=== PATIENT | male | born 1985 | race Hispanic/Latino ===

== ENCOUNTER 2024-04-21 15:43 | Inpatient (IN) | payer OTHER ==
[~2024-04-21] VITALS: Ht 193 cm; Wt 149.3 kg
[2024-04-21] VITALS (9 sets, daily range): BP systolic 101–134; BP diastolic 51–108
[2024-04-21] MEDS ORDERED: ASPIRIN 81 LOW81 MG PO (15:59)
[2024-04-21] MEDS ORDERED: METOPROL TAR25 MG PO (16:00)
[2024-04-21] MEDS ORDERED: LISINOPRIL20 M1 PO (16:00)
[2024-04-21] MEDS ORDERED: PLAVIX75 MG PO (16:01)
[2024-04-21] MEDS ORDERED: LASIX 40 MG TAB40 MG PO (16:01)
[2024-04-21] MEDS ORDERED: ALDACTONE25 MG PO (16:01)
[2024-04-21 16:07] LABS: BASO% 0.1 % (0-3); EOS% 0.4 % (0-8); HEMATOCRIT 38.7 % (39.0-50.0); IMMATURE GRANULOCYTES 0.2 % (0.0-5.0); LYMPH% 12.4 % (15-41); MEAN CELL VOLUME 82.3 fL CALC (80.0-100.0); MEAN CORPUSCULAR HGB 27.7 pG CALC (26.0-32.0); MEAN CORPUSCULAR HGB CONC 33.6 g/dL CAL (32.0-36.0); MONO% 9.4 % (2-13); NEUT# 7.3 thou/uL (1.82-7.42); NEUT% 77.5 % (42-76); RED BLOOD COUNT 4.7 mill/uL (4.70-6.10); RED CELL DISTRI WIDTH 14.4 % (11.5-15.5)
[2024-04-21 16:18] LABS: PROTHROMBIN TIME 9.9 SECONDS (9.0-12.5)
[2024-04-21 16:19] LABS: ALBUMIN 4.6 g/dL (3.2-5.0); BILIRUBIN, TOTAL 0.7 mg/dL (0.2-1.3); TOTAL PROTEIN 7.5 g/dL (6.3-8.2)
[2024-04-21 16:24] LABS: CREATININE 0.9 mg/dL (0.7-1.3)
[2024-04-21] MEDS ORDERED: CLOPIDOGREL BISULFATE 75 MG/TAB TAB PO ONE (16:45)
[2024-04-21] MEDS ORDERED: ASPIRIN 81 MG/TAB PO ONE (16:45)
[2024-04-21 16:54] LABS: CHOLESTEROL HDL RATIO 3.7 (<4.4 (CALC))
[2024-04-21 20:13] LABS: URINE BILIRUBIN - DIPSTICK Negative (NEGATIVE); URINE BLOOD DIPSTICK Negative (NEGATIVE); URINE GLUCOSE - DIPSTICK Negative (NEGATIVE); URINE KETONE Negative (NEGATIVE); URINE LEUK ESTERASE Negative (NEGATIVE); URINE NITRITE - DIPSTICK Negative (Negative); URINE PROTEIN - DIPSTICK Negative (NEG-TRACE); URINE UROBILINOGEN - DIPSTICK 0.2 E.U./dL (0.2)
[2024-04-21 20:14] LABS: URINE COLOR Yellow
[2024-04-21] MEDS ORDERED: DEXTROSE 250 ML IV PRN (21:15)
[2024-04-22] VITALS (32 sets, daily range): BP systolic 81–135; BP diastolic 33–83
[2024-04-22] MEDS ORDERED: SPIRONOLACTONE 25 MG/TAB PO SCH (09:00)
[2024-04-22] MEDS ORDERED: ASPIRIN 81 MG/TAB PO SCH (09:00)
[2024-04-22] MEDS ORDERED: METOPROLOL TARTRATE 25 MG/TAB PO SCH (09:00)
[2024-04-22] MEDS ORDERED: LISINOPRIL 20 MG/TAB PO SCH (09:00)
[2024-04-22] MEDS ORDERED: FUROSEMIDE 40 MG/TAB PO SCH (09:00)
[2024-04-22] MEDS ORDERED: CLOPIDOGREL BISULFATE 75 MG/TAB TAB PO SCH (09:00)
[2024-04-22] MEDS ORDERED: PANTOPRAZOLE SODIUM Sesquihydr 40 MG/TAB PO SCH (09:00)
[2024-04-22] MEDS ORDERED: ATORVASTATIN CALCIUM 40 MG/TAB PO SCH (21:00)
[2024-04-23 02:12] VITALS: BP 100/48
[2024-04-23 03:01] VITALS: BP 100/50
[2024-04-23 04:51] LABS: HEMATOCRIT 33.3 % (39.0-50.0); HEMOGLOBIN 11.2 g/dl (14.0-18.0); MEAN CELL VOLUME 84.7 fL CALC (80.0-100.0); MEAN CORPUSCULAR HGB 28.5 pG CALC (26.0-32.0); MEAN CORPUSCULAR HGB CONC 33.6 g/dL CAL (32.0-36.0); RED BLOOD COUNT 3.93 mill/uL (4.70-6.10); RED CELL DISTRI WIDTH 14.4 % (11.5-15.5)
[2024-04-23 05:08] LABS: ALBUMIN 3.7 g/dL (3.2-5.0); BILIRUBIN, TOTAL 0.7 mg/dL (0.2-1.3); CREATININE 0.9 mg/dL (0.7-1.3); MAGNESIUM 1.8 mg/dL (1.6-2.3); POTASSIUM 3.8 mmol/l (3.5-5.1)
[2024-04-23 09:32] VITALS: BP 91/44
[2024-04-23 11:11] VITALS: BP 163/63
[2024-04-23 15:16] VITALS: BP 133/57
[2024-04-24] MEDS ORDERED: ASPIRIN 81 MG/TAB PO SCH (09:00)
== END 2024-04-23 16:18 | disposition left against medical advice (07) | DRG 65 ==
LOC: ED 15:43 → ED-I 18:45 → ED 19:15 → ICU 19:16 → MS2 04-23 10:45
PROVIDERS: Nurse Practitioner; ADMIT Internal Medicine; ATTEND Internal Medicine
DX: I63.40 Cerebral infarction due to embolism of unspecified cerebral artery (principal); G81.94 Hemiplegia, unspecified affecting left nondominant side; R29.810 Facial weakness; R20.2 Paresthesia of skin; H53.9 Unspecified visual disturbance; R29.705 NIHSS score 5; I11.0 Hypertensive heart disease with heart failure; I50.9 Heart failure, unspecified; I48.0 Paroxysmal atrial fibrillation; E78.5 Hyperlipidemia, unspecified; Z95.2 Presence of prosthetic heart valve; Z79.02 Long term (current) use of antithrombotics/antiplatelets; Z79.82 Long term (current) use of aspirin; Z86.19 Personal history of other infectious and parasitic diseases